=== PATIENT | male | born 1975 | race Caucasian/White ===

== ENCOUNTER 2022-05-03 09:47 | Outpatient (CLI) | payer OTHER, SELFPAY | END 2022-05-03 09:48 | disposition home or self-care (01) | PROVIDERS: PCP Nurse Practitioner Family; Visit Provider Surgery | DX: K40.91 Unilateral inguinal hernia, without obstruction or gangrene, recurrent (principal); Z01.818 Encounter for other preprocedural examination | CPT/HCPCS: 36415; 86850; 86900; 86901 ==

== ENCOUNTER 2022-05-14 00:45 | Day surgery (SDC) | payer OTHER, SELFPAY ==
[2022-05-02 15:24] VITALS: BMI 25.2
--- NOTE | 2022-05-02 15:29 | PC.NURSE ---
Report to the Outpatient Waiting Room, entrance under the green pavilion located off [facility], at time 10:00 on date 05/14/22. Planned Procedure Time: 12:00. Time changes happen often and if your time is changed the preop area will call you the afternoon before. - You and your visitor will be asked to self-screen and do not enter if you have any COVID symptoms. - Only one visitor is requested with a max of two and NO children visitors are allowed at this time. - The patient visitor may be requested to leave or wait in car when not with patient due to distancing restrictions. - A mask is REQUIRED within the hospital. Patients may have clear liquids (water, carbonated beverages, clear teas, apple juice) until 3 hours prior to surgery with a maximum of 20 ounces. - No food from midnight until time of surgery Take the following medications with a SIP of water the morning of surgery: NONE Medications to discontinue per physician: VITAMINS Date to take last dose: 05/10/22 Please no make-up, nail togolese, hairspray, perfume, deodorant, or body powder the day of surgery. No jewelry (including any body piercings) or valuables the day of surgery, leave them at home. Please take a shower or bath the night before, or the morning of, surgery with an antibacterial soap (HIBICLENS). Wear comfortable, loose fitting clothing. - Jewelry must be removed prior to entering the operating room. Rings and piercings that are not removed may be cut off. - The hospital will not accept responsibility for valuables. - Please leave all valuables, including medications, at home the day of surgery. If you are going home after surgery, a licensed milk truck driver must drive you home. - NO public transportation without another adult if you receive anesthesia. - We recommend that an adult stay with you for 24 hours following discharge. - We also recommend that you do not drive, make important decision, drink alcoholic beverages, or take any drugs that were not prescribed by your health care provider for at least 24 hours after your discharge time. Follow any additional instructions given to you from your surgeon. If you or anyone in your household have experienced Covid symptoms in the past week, please notify your surgeon or the nurse liaison at the phone number below for possible testing. Telephone instructions given to PT - MATILDA LARRY and asked if any additional questions and then verbalized understanding. Patient advised to call surgeon office or pre surgery nurse liaison [phone] if any additional questions.
[2022-05-14] VITALS (7 sets, daily range): BP systolic 100–151; BP diastolic 56–84; PULSE 55–93; RESP 10–20; TEMP 36.4–37.2; O2SAT 97–100
[2022-05-14] MEDS: ACETAMINOPHEN 500 MG TABLET 1000 MG PO (10:09)
[2022-05-14] MEDS: KETOROLAC 15 MG/ML VIAL (*BKC) IV PUSH ×2 (10:52→14:55)
--- NOTE | 2022-05-14 11:11 | WPDANESEPPF ---
Anes - Initial Pre Proc Eval Procedure: Operation Date: 05/14/22 12:00 Proposed Procedures p Robotic Assisted Laparoscopic Recurrent Right Inguinal Hernia Repair with Mesh, Possible Open - Marcelo Morgan MD Date/Time: 05/14/22 11:11 Surgeon: Marcelo Morgan MD Pre Op Diagnosis: reduceable recurrent right inguinal hernia Patient Data Age: 46 Gender: M Height: 1.7 m Weight: 70 kg Last Vital Signs Temp 98.9 F 05/14/22 10:45 Pulse 93 05/14/22 10:45 Resp 16 05/14/22 10:45 BP 151/84 H 05/14/22 10:45 Pulse Ox 99 05/14/22 10:45 O2 Del Method Room Air 05/14/22 10:45 Allergies Allergy/AdvReac Type Severity Reaction Status Date / Time Penicillins AdvReac Nausea Verified 05/14/22 10:05 Home Medications Medication Instructions Recorded Confirmed Type qcyohjgl-usmzqgpm-wjepg acid 400 1 tablet PO DAILY 04/11/22 05/14/22 History mcg-vit K 20 mcg-lycop 300 mcg tablet (One-A-Day Men's Multivitamin) Patient hx anesthesia problems: none Family hx anesthesia problems: none Results Review: All pre-operative results and documents have been reviewed as part of the pre-operative evaluation. [facility] Past Medical History Medical History Encounter to establish care Hernia Low back pain Surgical History Surgical History History of hernia surgery Hx of inguinal hernia repair Family History Family History Grandparent Hypertension Social History Social History Years smoked: 4 Smoking status: Former smoker Tobacco type: cigarettes Smoking end date: 04/21/07 Alcohol intake: current Drinks per week: 1 Substance use: current Substance use type: marijuana Other substance usage details: EDIBLES Living arrangements: with family Spiritual care concerns: No Anes - Eval Final PreProcedure Day of Procedure 05/14/22 11:11 Patient weight: normal Heart: regular rate and rhythm Lungs: clear to auscultation Airway: Mallampati scale class II Neurological: alert and oriented Last oral intake: >/= 8 hours ASA classification: II Emergent: no Anesthetic plan: proceed Anesthesia type and monitoring: general ETT and standard monitoring Results Review: All pre-operative results and documents have been reviewed as part of the pre-operative evaluation. Informed Consent: The patient's anesthetic plan and its attendant risks and benefits were discussed with the patient/family/POA. Questions were solicited and answers provided to the satisfaction of the patient/family/POA.
[2022-05-14] MEDS: LACTATED RINGERS 1,000 ML 30 ML IV CONT ×3 (11:50→17:09)
--- NOTE | 2022-05-14 12:17 | WPDHPUPDATE1 ---
History and Physical Update Update Date/Time: 05/14/22 12:17 History and Physical has been reviewed, including an updated exam of the patient. There are NO changes in the patient's condition. Risks, benefits, and alternatives have been discussed and questions answered. Patient agrees to proceed with procedure.
[2022-05-14] MEDS: ceFAZolin 2 GM/D5W 50 ML 2 GM/50 ML BAG IVPB (12:27)
[2022-05-14] MEDS: LIDOCAINE HCL 1% PF 30 ML VIAL 20 ML INFILTRATE (13:16)
[2022-05-14] MEDS: BUPIVACAINE/EPINEPHRINE 0.5% 30 ML VIAL 20 ML INFILTRATE (13:17)
--- NOTE | 2022-05-14 15:06 | W.PM.PROC2 ---
Procedure Note - Detailed Date of Procedure 05/14/22 Pre-op Diagnosis reduceable recurrent right inguinal hernia Post-op Diagnosis Same Procedure Performed Robotic assisted laparoscopic recurrent right inguinal hernia repair with Bard 3D mid weight mesh and removal of old mesh plug. Surgeon Marcelo Morgan MD [employer] Manager Ubaldo Marquez [employer] Anesthesia General Indications Patient with a recurrent usable right inguinal hernia. Prior open right inguinal hernia pair with mesh. Findings A large recurrent indirect right inguinal hernia was present. Old mesh plug present with recurrent defect medial to the mesh plug Description of Procedure After informed consent was obtained the patient brought to the operating room was placed in supine position and general endotracheal anesthesia was administered. A Osorio catheter was placed to decompress the bladder. The bilateral groin and abdomen was then prepped and draped in usual sterile fashion. A time-out was then performed correctly identifying the patient as well as the procedure to be performed. The site marking was confirmed and I comfirmed that preoperative IV antibiotics were given. I first started by placing a 10millimeter Optiview port in the left upper quadrant with a direct optical insertion. The abdomen was then insufflated to adequate pneumoperitoneum of 15millimeters of mercury with CO2. I could see there was a recurrent direct right right inguinal hernia defect with an old mesh plug lateral to the defect. I then placed additional 8millimeter robotic trocar ports under direct visualization. The 8millimeter robotic laparoscope was advanced into the abdomen after the ports were attached to the robotic arms. The robot was docked to the patient's right side. Robotic instruments were then advanced into the abdomen under direct visualization and then I scrubbed out of procedure sat down at the robotic console to perform the robotic dissection. Utilizing robotic hook dissection I created a preperitoneal flap starting anterior and superior to the right anterior superior iliac spine. This was carried medially across the midline. Dissection was then carried distally identifying the inferior epigastric vessels and the internal ring. There is no evidence of an indirect inguinal hernia defect. As I continued to dissect the peritoneal flap I encountered the mesh plug and I continued to dissect the peritoneum off of the mesh plug. Once I had dissected inferiorly and deep to the mesh plug I was able to identify the pubic tubercle and pubic symphysis. I then resected and removed a large portion of the old mesh plug to allow my new mesh to lay flat in the dissected space. The mesh plug was discarded after removing it from the pelvis. I then dissected down into the space of Retzius. I then identified the vas deferens and testicular vessels along the spermatic cord and dissected these out preserving the structures without injury. I then dissected the peritoneum all way back on on to the psoas muscle. The peritoneum hernia sac was reduced out of the direct defect. I then chose a piece of Bard 3D mid weight mesh oriented for the right side for the repair. The mesh measured 16 cm in length by 10centimeters in width. It was placed into the abdomen through the left upper quadrant assistant professor port site and then placed into the dissected space where it covered the direct defect and internal ring with wide overlap. I then secured the mesh medially with a 2 0 Vicryl suture. Laterally the mesh was secured to the muscle medial and anterior to the right anterior superior iliac spine. A 3rd suture was placed to approximate the mesh to the area of the direct defect. Hemostasis was good and as I pulled up the peritoneal flap, the proximal edge of the mesh did not roll up with the peritoneum. I then proceed to close the peritoneum utilizing a running absorbable 2 0 V-loc suture. I then had all the robotic instruments removed from the abdomen and the
[2022-05-14] MEDS: ONDANSETRON INJ 4 MG/2 ML VIAL IV PUSH (16:33)
[2022-05-14] MEDS: HYDROcodone/acetaminophen (*CRX) 5-325 MG TABLET 1 TAB PO (17:07)
== END 2022-05-14 17:30 | disposition home or self-care (01) ==
PROVIDERS: PCP Nurse Practitioner Family; Visit Provider Surgery
PROC: 8E0Y4CZ Robotic Assisted Procedure of Lower Extremity, Percutaneous Endoscopic Approach (ICD-10-PCS; CPT 49650; principal; 2022-05-14 12:00)
DX: K40.91 Unilateral inguinal hernia, without obstruction or gangrene, recurrent (principal); Z87.891 Personal history of nicotine dependence; F12.90 Cannabis use, unspecified, uncomplicated
CPT/HCPCS: 49651; S2900; 36415; 86850; 86900; 86901; A9270; C1781; J0690; J1100; J1170; J1885; J2250; J2405; J2704; J2710; J3010; J7030; J7120